=== PATIENT | male | born 1980 | race Two or more races ===

== ENCOUNTER 2019-02-16 18:40 | Emergency (ER) | payer OTHER ==
[~2019-02-16] VITALS: Ht 157.5 cm; Wt 66.2 kg
[2019-02-16 20:18] VITALS: BP 117/69
== END 2019-02-16 20:23 ==
LOC: EEVIPCON 18:44 → ER 18:44
DX: S00.81XA Abrasion of other part of head, initial encounter (principal); X58.XXXA Exposure to other specified factors, initial encounter; Y93.89 Activity, other specified; Y92.89 Other specified places as the place of occurrence of the external cause; Y99.8 Other external cause status
CPT/HCPCS: 70450